=== PATIENT | male | born 1945 | race Caucasian/White ===

== ENCOUNTER → 2019-01-01 | Outpatient (CLI) | payer MEDICARE, OTHER ==
--- NOTE | 2019-01-01 11:05 | PCVCIMAG ---
APPROVED REPORT Study performed: 01/01/2019 09:41:23 Exam: Stress Echocardiogram Indication: HTN, HLP, MURMUR Patient Location: Echo lab Stress Nurse: Cookie Porter RN Status: routine Ht: 5 ft 11 in HR: 64 bpm BP: 122/64 mmHg Rhythm: NSR Procedure The patient underwent an Exercise Stress Test using the Keaton Protocol. Blood pressure, heart rate, and EKG were monitored. An Echocardiogram was performed by lock technician in four stages in quad fashion. At peak stress, four selected images were obtained and placed side by side with resting images for comparison. Stress Test Details Stress Test: Exercise stress testing was performed using a Keaton protocol. HR Resting HR: 64 bpmMax Heart Rate (APMHR): 147 bpm Max HR Achieved: 142 bpmTarget HR (85% APMHR): 124 bpm % of APMHR: 96 Recovery HR: 85 bpm HR response to stress: Normal HR response to stress BP Resting BP: 122/64 mmHg Max BP: 168/76 mmHg Recovery BP: 132/68 mmHg BP response to stress: Normal blood pressure response to stress. ECG Resting ECG: Sinus Rhythm Stress ECG: Sinus Rhythm ST Change: Normal Arrhythmia: None Recovery ECG: Sinus Rhythm Recovery ST Change: Normal Recovery Arrhythmia: None Clinical Reason for Termination: Maximal effort Stress Symptoms: Dyspnea Exercise duration: 6 min sec Highest Stage Achieved: Stage 2: 2.5 mph at 12% grade. Exercise capacity: 7 METs Overall Exercise Capacity for Age: Normal Scale: Active Angina Score: None Pre-Stress Echo The resting Echocardiogram showed normal left ventricular contractility with an estimated Ejection Fraction of about >55%. The resting echocardiogram demonstrated normal wall motion in all wall segments. Post-Stress Echo The stress Echocardiogram showed left ventricular contractility with an estimated Ejection Fraction of about 65%. Compared to rest, there were no stress-induced wall motion abnormalities. Clinical No clinical or ECG evidence for ischemia. Conclusion Clinical Response: Non-ischemic Exercise Capacity: Average Stress ECG Response: Non-ischemic Stress Echo Images: Non-ischemic The left ventricle is normal in size and wall thickness in both the rest and stress images. Mild mitral regurgitation. Mild tricuspid regurgitation with PAP of 28 mmHg. Normal aortic and pulmonic valves. Other Information Study Quality: Adequate <Conclusion> The left ventricle is normal in size and wall thickness in both the rest and stress images. Mild mitral regurgitation. Mild tricuspid regurgitation with PAP of 28 mmHg. Normal aortic and pulmonic valves.
== END | disposition home or self-care (01) ==
LOC: PCVCIMAG 09:19
PROVIDERS: ATTEND Internal Medicine Cardiovascular Disease
DX: I08.1 Rheumatic disorders of both mitral and tricuspid valves (principal); N18.9 Chronic kidney disease, unspecified
CPT/HCPCS: 36415; 80061; 93325; 93351